=== PATIENT | female | born 1940 | race Caucasian/White ===

== ENCOUNTER → 2016-08-11 | Outpatient (CLI) | payer MEDICARE, OTHER ==
[~2016-08-11] MED LIST: CARVEDILOL12.5 MG PO; CLARITIN10 MG PO; LEVOTHYROXIN0.112 MG PO; OSCAL/D,OYSTER250 MG PO; TYLENOL500 MG PO; VITAMIN D400 IU PO
[2016-08-11 08:33] LABS: BASO % 0.5 % (0.0-1.0); EOS # 0.5 10*3/uL (0.0-0.4); EOS % 5.2 % (1.0-4.0); HEMATOCRIT 40.4 % (37.0-47.0); HEMOGLOBIN 13.2 g/dl (12.0-16.0); LYMPH # 2.2 10*3/uL (1.3-4.4); LYMPH % 25.5 % (27.0-41.0); MEAN CELL VOLUME 96.9 fl (81.0-99.0); MEAN CORPUSCULAR HGB 31.7 pg (27.0-31.0); MEAN CORPUSCULAR HGB CONC 32.7 g/dl (33.0-37.0); MEAN PLATELET VOLUME 10.5 fl (9.6-12.3); MONO # 0.7 10*3/uL (0.1-1.0); MONO % 7.7 % (3.0-9.0); NEUT # 5.2 10*3/uL (2.3-7.9); NEUT % 60.8 % (47.0-73.0); PLATELET COUNT AUTOMATED 174 10*3/uL (130-400); RED BLOOD COUNT 4.17 10*6/uL (4.10-5.10); RED CELL DISTRI WIDTH 13.5 % (0-14.5); WHITE BLOOD COUNT 8.6 10*3/uL (4.8-10.8)
[2016-08-11 09:09] LABS: ALBUMIN 3.6 gm/dl (3.1-4.5); BILIRUBIN, TOTAL 0.6 mg/dl (0.2-1.0); FREE T4 1.13 ng/dl (0.76-1.46); POTASSIUM 4.2 mmol/L (3.5-5.1); THYROID STIM HORMONE (HS) 2.21 uIU/ml (0.358-4.75); TOTAL PROTEIN 7.7 gm/dL (6.4-8.2)
[2016-08-11 10:55] LABS: FOLIC ACID 20.93 ng/mL (>5.38)
== END | disposition home or self-care (01) ==
LOC: LAB 07:57
PROVIDERS: Internal Medicine
DX: I10 Essential (primary) hypertension (principal); M16.0 Bilateral primary osteoarthritis of hip; R42 Dizziness and giddiness; E03.9 Hypothyroidism, unspecified; E78.5 Hyperlipidemia, unspecified; M54.5 Low back pain; M47.896 Other spondylosis, lumbar region; M25.551 Pain in right hip; M25.552 Pain in left hip

== ENCOUNTER → 2018-01-18 | Outpatient (CLI) | payer MEDICARE, OTHER | END | disposition home or self-care (01) | LOC: MRI 00:34 | DX: M47.896 Other spondylosis, lumbar region (principal); M48.061 Spinal stenosis, lumbar region without neurogenic claudication; M41.86 Other forms of scoliosis, lumbar region; M54.6 Pain in thoracic spine; Z91.81 History of falling ==

== ENCOUNTER → 2018-02-05 | Outpatient (CLI) | payer MEDICARE, OTHER | END | disposition home or self-care (01) | LOC: CT 01:21 | DX: I70.90 Unspecified atherosclerosis (principal); R19.09 Other intra-abdominal and pelvic swelling, mass and lump ==

== ENCOUNTER 2018-02-09 11:23 | Emergency (ER) | payer MEDICARE, OTHER ==
[~2018-02-09] VITALS: Ht 170.1 cm; Wt 56.7 kg
[2018-02-09 12:26] LABS: BASO % 0.4 % (0.0-1.0); EOS # 0.2 10*3/uL (0.0-0.4); EOS % 2.8 % (1.0-4.0); HEMATOCRIT 34.4 % (37.0-47.0); HEMOGLOBIN 11.4 g/dl (12.0-16.0); LYMPH # 1.8 10*3/uL (1.3-4.4); LYMPH % 22.8 % (27.0-41.0); MEAN CELL VOLUME 95.8 fl (81.0-99.0); MEAN CORPUSCULAR HGB 31.8 pg (27.0-31.0); MEAN CORPUSCULAR HGB CONC 33.1 g/dl (33.0-37.0); MEAN PLATELET VOLUME 9.5 fl (9.6-12.3); MONO # 0.6 10*3/uL (0.1-1.0); NEUT # 5.3 10*3/uL (2.3-7.9); NEUT % 66.9 % (47.0-73.0); PLATELET COUNT AUTOMATED 200 10*3/uL (130-400); RED BLOOD COUNT 3.59 10*6/uL (4.10-5.10); RED CELL DISTRI WIDTH 13.6 % (0-14.5); WHITE BLOOD COUNT 7.9 10*3/uL (4.8-10.8)
[2018-02-09 12:43] LABS: ALBUMIN 3.4 gm/dl (3.1-4.5); ALKALINE PHOSPHATASE 84 U/L (45-117); BUN 15 mg/dl (7-24); CHLORIDE 108 mmol/L (98-107); CREATININE 1.03 mg/dL (0.55-1.02); LIPASE 81 U/L (73-393); POTASSIUM 3.5 mmol/L (3.5-5.1); SGOT/AST 17 IU/L (3-35); SGPT/ALT 20 U/L (12-78); SODIUM 141 mmol/L (136-145); TOTAL PROTEIN 7.5 gm/dL (6.4-8.2)
[2018-02-09 12:50] VITALS: BP 127/62
== END 2018-02-09 14:24 | disposition home or self-care (01) ==
LOC: ED 11:23
PROVIDERS: Emergency Medicine
DX: J02.9 Acute pharyngitis, unspecified (principal); R13.10 Dysphagia, unspecified; R22.0 Localized swelling, mass and lump, head; Z88.6 Allergy status to analgesic agent; Z79.899 Other long term (current) drug therapy

== ENCOUNTER → 2019-03-18 | Outpatient (CLI) | payer MEDICARE, OTHER ==
[2019-03-18 13:00] LABS: CREATININE 1.12 mg/dL (0.55-1.02); FREE T4 1.19 ng/dl (0.76-1.46)
[2019-03-18 13:05] LABS: THYROID STIM HORMONE (HS) 4.87 uIU/ml (0.358-4.75)
[2019-03-18 14:04] LABS: FERRITIN 90.6 ng/mL (10.0-291.0)
== END | disposition home or self-care (01) ==
LOC: LAB 11:54
PROVIDERS: Internal Medicine
DX: M16.0 Bilateral primary osteoarthritis of hip (principal); G25.81 Restless legs syndrome; E03.9 Hypothyroidism, unspecified; E78.5 Hyperlipidemia, unspecified

== ENCOUNTER → 2019-04-27 | Outpatient (CLI) | payer MEDICARE, OTHER ==
[~2019-04-27] MED LIST changes: +GABAPENTIN400 MG PO; +LEVAQUIN750 M1 PO; +LEVOTHYROXINE50 MCG PO; +LISINOPRIL2.5 MG PO; +MYRBETRIQ25 M1 PO; +NICODERM CQ1 EAC2 T; +OMEPRAZOLE MAGN20 MG PO; +OYSTER SHELL 51 EACH PO; +PRAVASTATIN SOD20 MG PO; +PREDNISONE10 MG PO; +Percocet 325 MG1 TAB PO; +ROPINIROLE HYD0.5 MG PO; +VENT7GM INH; +XARE15TA PO
[2019-04-27 17:29] LABS: PTH INTACT 41.5 pg/mL (18.5-88.0); VITAMIN D, 25-HYDROXY 13.5 ng/mL (30-100)
== END | disposition home or self-care (01) ==
LOC: US 14:00 → LAB 14:05
PROVIDERS: Internal Medicine Nephrology
DX: M16.12 Unilateral primary osteoarthritis, left hip (principal); M25.551 Pain in right hip; R10.2 Pelvic and perineal pain; N18.3 Chronic kidney disease, stage 3 (moderate)

== ENCOUNTER 2019-05-19 13:10 | Inpatient (IN) | payer MEDICARE, OTHER ==
[~2019-05-19] VITALS: Ht 165.1 cm; Wt 54.0 kg
[~2019-05-19 13:10] MED LIST changes: -GABAPENTIN400 MG PO; -LEVAQUIN750 M1 PO; -LEVOTHYROXINE50 MCG PO; -LISINOPRIL2.5 MG PO; -MYRBETRIQ25 M1 PO; -NICODERM CQ1 EAC2 T; -OMEPRAZOLE MAGN20 MG PO; -OYSTER SHELL 51 EACH PO; -PRAVASTATIN SOD20 MG PO; -PREDNISONE10 MG PO; -Percocet 325 MG1 TAB PO; -ROPINIROLE HYD0.5 MG PO; -VENT7GM INH; -XARE15TA PO
[2019-05-19] MEDS ORDERED: VENT7GM INH (14:48)
[2019-05-19] MEDS ORDERED: OMEPRAZOLE MAGN20 MG PO (14:49)
[2019-05-19] MEDS ORDERED: Percocet 325 MG1 TAB PO (14:51)
[2019-05-19] MEDS ORDERED: PRAVASTATIN SOD20 MG PO (14:51)
[2019-05-19] MEDS ORDERED: GABAPENTIN400 MG PO (14:52)
[2019-05-19] MEDS ORDERED: LISINOPRIL2.5 MG PO (14:53)
[2019-05-19] MEDS ORDERED: LEVOTHYROXINE50 MCG PO (14:54)
[2019-05-19] MEDS ORDERED: ROPINIROLE HYD0.5 MG PO (14:57)
[2019-05-19] MEDS ORDERED: MYRBETRIQ25 M1 PO (15:01)
[2019-05-19] MEDS ORDERED: OYSTER SHELL 51 EACH PO (15:02)
[2019-05-19 15:45] LABS: BASO % 0.2 % (0.0-1.0); EOS # 0.1 10*3/uL (0.0-0.4); EOS % 0.7 % (1.0-4.0); HEMOGLOBIN 13.3 g/dl (12.0-16.0); LYMPH # 1.5 10*3/uL (1.3-4.4); MEAN CELL VOLUME 98.8 fl (81.0-99.0); MEAN CORPUSCULAR HGB CONC 32.4 g/dl (33.0-37.0); MEAN PLATELET VOLUME 9.6 fl (9.6-12.3); MONO % 7.9 % (3.0-9.0); NEUT # 10.1 10*3/uL (2.3-7.9); PLATELET COUNT AUTOMATED 197 10*3/uL (130-400); RED BLOOD COUNT 4.15 10*6/uL (4.10-5.10); RED CELL DISTRI WIDTH 13.5 % (0-14.5); WHITE BLOOD COUNT 12.8 10*3/uL (4.8-10.8)
[2019-05-19 16:00] VITALS: BP 125/62
[2019-05-19 16:01] LABS: ALBUMIN 3.9 gm/dl (3.1-4.5); ALKALINE PHOSPHATASE 107 U/L (45-117); BUN 16 mg/dl (7-24); CHLORIDE 100 mmol/L (98-107); CREATININE 1.07 mg/dL (0.55-1.02); POTASSIUM 3.9 mmol/L (3.5-5.1); SGOT/AST 25 IU/L (3-35); SGPT/ALT 27 U/L (12-78); SODIUM 134 mmol/L (136-145); TOTAL PROTEIN 8.7 gm/dL (6.4-8.2)
[2019-05-19 16:11] LABS: TROPONIN I < 0.015 ng/ml (<0.045)
[2019-05-19 20:00] VITALS: BP 126/60
--- NOTE | 2019-05-19 21:15 | NUR ---
PRN TYLENOL ADMINISTERED AT THIS TIME FOR TEMP OF 99.2. WILL MONITOR.
--- NOTE | 2019-05-19 21:15 | NUR ---
DR KEARNS NOTIFIED OF PTS O2 SAT 87. PT COUGHING CONSISTENTLY AND HAS A HARD TIME CATCHING HER BREATH INBETWEEN. PT STATES THAT SHE IS NOT ANY MORE SOB THAN NORMAL. HEAD OF THE BED WAS ELEVATED AND O2 WAS INCREASED TO 2 1/2. O2 89 AT THIS TIME. WILL CONTINUE TO MONITOR.
--- NOTE | 2019-05-19 23:41 | NUR ---
DR MORALES NOTIFIED OF PT O2 SAT 88 ON 3L NC. STATES TO CONTINUE TO MONITOR THE PT AT THIS TIME AND NOTIFY IF SHE FALLS BELOW 88. PT IN NO DISTRESS.
[2019-05-20] VITALS: BP 141/57
[2019-05-20 00:32] LABS: ABG BASE EXCESS 0.9 mmol/L (-2.0-2.0); ABG HCO3 24.6 mmol/l (22-26); ARTERIAL BLOOD GAS PCO2 38.2 mmHg (35-45); ARTERIAL BLOOD GAS PH 7.425 (7.35-7.45); ARTERIAL BLOOD GAS PO2 58.7 mmHg (80-90)
--- NOTE | 2019-05-20 03:39 | NUR ---
24 HOUR CHART CHECK COMPLETE.
[2019-05-20 06:49] LABS: BUN 19 mg/dl (7-24); CHLORIDE 102 mmol/L (98-107); CREATININE 1.02 mg/dL (0.55-1.02); PHOSPHOROUS 3.6 mg/dL (2.5-4.9); POTASSIUM 4.2 mmol/L (3.5-5.1); SODIUM 134 mmol/L (136-145)
[2019-05-20 07:34] LABS: BASO % 0.1 % (0.0-1.0); HEMATOCRIT 37.5 % (37.0-47.0); HEMOGLOBIN 12.2 g/dl (12.0-16.0); LYMPH % 8.6 % (27.0-41.0); MEAN CELL VOLUME 97.2 fl (81.0-99.0); MEAN CORPUSCULAR HGB 31.6 pg (27.0-31.0); MEAN CORPUSCULAR HGB CONC 32.5 g/dl (33.0-37.0); MEAN PLATELET VOLUME 10.4 fl (9.6-12.3); MONO # 0.1 10*3/uL (0.1-1.0); MONO % 0.9 % (3.0-9.0); NEUT % 89.7 % (47.0-73.0); PLATELET COUNT AUTOMATED 194 10*3/uL (130-400); RED BLOOD COUNT 3.86 10*6/uL (4.10-5.10); RED CELL DISTRI WIDTH 13.5 % (0-14.5); WHITE BLOOD COUNT 11.2 10*3/uL (4.8-10.8)
[2019-05-20 08:00] VITALS: BP 108/56
--- NOTE | 2019-05-20 09:11 | NUR ---
MESSAGE LEFT VIA VOICEMAIL TO NOTIFIY DR PRICE OF NEW CONSULT FOR COPD EXACERBATION WITH HYPOXEMIC RESPITORY FAILURE.
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
[2019-05-20 12:00] VITALS: BP 105/48
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
[2019-05-20 16:00] VITALS: BP 127/65
[2019-05-20 20:00] VITALS: BP 132/52
--- NOTE | 2019-05-20 20:00 | NUR ---
24 HOUR CHART CHECK COMPLETE.
[2019-05-21] VITALS: BP 153/69
[2019-05-21 06:50] LABS: HEMATOCRIT 38.3 % (37.0-47.0); HEMOGLOBIN 12.2 g/dl (12.0-16.0); MEAN CELL VOLUME 99.2 fl (81.0-99.0); MEAN CORPUSCULAR HGB 31.6 pg (27.0-31.0); MEAN CORPUSCULAR HGB CONC 31.9 g/dl (33.0-37.0); MEAN PLATELET VOLUME 9.9 fl (9.6-12.3); PLATELET COUNT AUTOMATED 210 10*3/uL (130-400); RED BLOOD COUNT 3.86 10*6/uL (4.10-5.10); RED CELL DISTRI WIDTH 13.7 % (0-14.5); WHITE BLOOD COUNT 14.1 10*3/uL (4.8-10.8)
[2019-05-21 07:11] LABS: BUN 16 mg/dl (7-24); CHLORIDE 112 mmol/L (98-107); CREATININE 0.99 mg/dL (0.55-1.02); POTASSIUM 4.1 mmol/L (3.5-5.1); SODIUM 143 mmol/L (136-145)
[2019-05-21 07:39] LABS: PLATELET SUFFICIENCY NORMAL (NORMAL); TOTAL CELLS COUNTED 100 #CELLS
[2019-05-21 08:00] VITALS: BP 134/65
--- NOTE | 2019-05-21 11:32 | NUR ---
DR PRICE ROUNDED AND SEEN PT.
[2019-05-21 12:00] VITALS: BP 109/72
[2019-05-21 16:00] VITALS: BP 141/65
--- NOTE | 2019-05-21 17:03 | NUR ---
RECIEVED MESSAGE FROM SR VICE PRESIDENT REGARDING POLICY ON TIME FRAME OF CXR PRIOR TO CTA, PER ADVERTISING PROJECT MANAGER.ORDER FOR REPEAT CXR RECIEVED. NOTIFIED RADIOLOGY.
[2019-05-21 20:00] VITALS: BP 150/63
--- NOTE | 2019-05-21 20:00 | NUR ---
24 HOUR CHART CHECK COMPLETE.
--- NOTE | 2019-05-21 23:00 | NUR ---
IV started right antecubital with #20 protective cath after 1 attempts. Site prepped with Chloroprep. Sterile dressing applied. Patient tolerated procedure well. RICK KOCH
[2019-05-22] VITALS: BP 160/63
--- NOTE | 2019-05-22 00:30 | NUR ---
SPOKE WITH DR YANNI FRAUSTO PTS CRITICAL CT SCAN RESULTS. STATES THAT THERE IS A PE IN THE RIGHT LOWER LOBE. CT RESULTS STATE THERE IS QUESTIONABLE FILLING DEFECT IN RIGHT LOWER LOBE. WILL CONTACT DR GALVAN REGARDING THESE RESULTS.
--- NOTE | 2019-05-22 01:08 | NUR ---
SPOKE WITH DR. GALVAN REGARDING PT CRITICAL CT SCAN FOR RT LOWER LOBE PE. T.O. TAKEN TO START HEPARIN DRIP PER PROTOCOL. DR. GALVAN STATED TO NOTIFY DR PRICE IN THE MORNING. WILL CONTINUE TO MONITOR.
[2019-05-22 01:11] LABS: HEMATOCRIT 37.6 % (37.0-47.0); HEMOGLOBIN 12.2 g/dl (12.0-16.0); MEAN CELL VOLUME 99.5 fl (81.0-99.0); MEAN CORPUSCULAR HGB 32.3 pg (27.0-31.0); MEAN CORPUSCULAR HGB CONC 32.4 g/dl (33.0-37.0); MEAN PLATELET VOLUME 9.8 fl (9.6-12.3); PLATELET COUNT AUTOMATED 230 10*3/uL (130-400); RED BLOOD COUNT 3.78 10*6/uL (4.10-5.10); RED CELL DISTRI WIDTH 13.8 % (0-14.5); WHITE BLOOD COUNT 15.8 10*3/uL (4.8-10.8)
[2019-05-22 01:22] LABS: ACT PARTIAL THROMBO TIME 25.1 SECONDS (20.0-32.1); INTERNATIONAL NORM RATIO 0.9 (2.0-3.5)
--- NOTE | 2019-05-22 01:30 | NUR ---
APTT 25.1. PER POLICY, NO BOLUS IS NECESSARY. HEPARING INFUSING AT 18U/KG/HR. 9.716 ML/HR. WILL MONITOR.
[2019-05-22 01:32] LABS: ATYPICAL LYMPHS 1 % (0-0); PLATELET SUFFICIENCY NORMAL (NORMAL); TOTAL CELLS COUNTED 100 #CELLS
--- NOTE | 2019-05-22 01:50 | NUR ---
APTT ORDERED FOR 05/22 0730, CBC ORDERED FOR 05/25 0530 PER POLICY.
--- NOTE | 2019-05-22 06:32 | NUR ---
LEFT A MESSAGE FOR DR PRICE ON HIS ANSWERING MACHINE REGARDING CT RESULTS AND START OF HEPARIN DRIP.
--- NOTE | 2019-05-22 06:39 | NUR ---
ATTEMPTED TO CALL DR PRICE'S HOUSE PHONE TO NOTIFY OF CT RESULTS AND START OF HEPARIN DRIP. NO ANSWER AT THIS TIME.
[2019-05-22 07:40] LABS: HEMATOCRIT 37.4 % (37.0-47.0); MEAN CORPUSCULAR HGB 32.1 pg (27.0-31.0); MEAN CORPUSCULAR HGB CONC 32.1 g/dl (33.0-37.0); MEAN PLATELET VOLUME 9.9 fl (9.6-12.3); PLATELET COUNT AUTOMATED 230 10*3/uL (130-400); RED BLOOD COUNT 3.74 10*6/uL (4.10-5.10); RED CELL DISTRI WIDTH 13.8 % (0-14.5); WHITE BLOOD COUNT 14.4 10*3/uL (4.8-10.8)
[2019-05-22 07:51] LABS: BUN 19 mg/dl (7-24); CHLORIDE 107 mmol/L (98-107); CREATININE 0.85 mg/dL (0.55-1.02); POTASSIUM 3.8 mmol/L (3.5-5.1); SODIUM 142 mmol/L (136-145)
[2019-05-22 08:00] VITALS: BP 133/86; BP 135/57
[2019-05-22 08:12] LABS: PLATELET SUFFICIENCY NORMAL (NORMAL); TOTAL CELLS COUNTED 100 #CELLS
--- NOTE | 2019-05-22 10:35 | NUR ---
SPOKE WITH DR. GALVAN TO QUESTION LOVENOX INJECTION WHILE PT ON HEPARIN GTT. TELEPHONE ORDER OF DC HEPARIN, LOVENIX AND START ELIQUIS 10MG PO BID FO R1 WEEK THEN 5 MG ELIQUIS BID THEREAFTER.
--- NOTE | 2019-05-22 10:54 | NUR ---
DR GALVAN ALSO ORDERRED CONSULT FOR INSURANCE APPROVAL ON [employer]. SAID HE MAY CHANGE IT TO [employer] IF INSURANCE DOES NOT APPROVE.
[2019-05-22 12:00] VITALS: BP 143/63
[2019-05-22 16:00] VITALS: BP 129/56
[2019-05-22 20:00] VITALS: BP 152/69
--- NOTE | 2019-05-22 22:51 | NUR ---
PT CALLED OUT & STATES SHE "RIPPED SKIN OFF BACK." RN IN ROOM TO ASSESS SITUATION. PT STATES SHE WAS GETTING OUT OF BED AND HIT BACK ON SIDE RAIL OF BED. STATES THIS HAPPENS A LOT, BUT THINKS IT IS OPEN. ABOUT 1 CM X 1 CM AREA OPEN AT THIS TIME. PT REFUSING PHOTOS/EXACT MEASURING. HYDROGEL AND OPTIFOAM APPLIED TO AREA. WILL NOTIFY DOCTOR & OBTAIN WOUND CARE ORDERS.
--- NOTE | 2019-05-22 22:51 | NUR ---
PT CALLED OUT & STATES SHE "RIPPED SKIN OFF BACK." RN IN TO ROOM TO ASSESS SITUATION. PT STATES SHE WAS GETTING OUT OF BED & NOTICED "SKIN" CAME OFF. PT STATES SHE SCRAPED BACK AT HOME ON A DOOR FACING & THAT THIS HAPPENS A LOT. STATES IT WAS HEALED, BUT SHE MUST'VE "SCRATCHED OFF THE SKIN" GETTING IN AND OUT OF BED. AREA IS OPEN. PT REFUSING PHOTOS/EXACT MEASUREMENTS BUT RN ESTIMATES OPEN AREA TO BE ABOUT 1CM X 1CM. HYDROGEL AND OPTIFOAM APPLIED TO AREA. WILL NOTIFY DOCTOR AND OBTAIN WOUND ORDERS.
[2019-05-23] VITALS: BP 159/71
--- NOTE | 2019-05-23 03:46 | NUR ---
PT ASLEEP IN BED. AEROSOL FACEMASK IN USE AT 40%. NO S/S OF DISTRESS NOTED. WILL MONITOR. CALL LIGHT IN REACH.
[2019-05-23 06:46] LABS: HEMOGLOBIN 12.7 g/dl (12.0-16.0); MEAN CELL VOLUME 99.5 fl (81.0-99.0); MEAN CORPUSCULAR HGB 31.6 pg (27.0-31.0); MEAN CORPUSCULAR HGB CONC 31.8 g/dl (33.0-37.0); MEAN PLATELET VOLUME 9.7 fl (9.6-12.3); PLATELET COUNT AUTOMATED 242 10*3/uL (130-400); RED BLOOD COUNT 4.02 10*6/uL (4.10-5.10); RED CELL DISTRI WIDTH 13.8 % (0-14.5); WHITE BLOOD COUNT 12.6 10*3/uL (4.8-10.8)
--- NOTE | 2019-05-23 06:46 | NUR ---
TESSALON PERLES ADMINISTERED PER PRN ORDER FOR DRY, HACKING COUGH. PT USING AEROSOL MASK AT THIS TIME. PT HAD EPISODE OF URINARY INCONTINENCE. PT CLEANED UP. NEW BED LINENS/GOWN PROVIDED. WILL MONITOR.
[2019-05-23 07:19] LABS: BUN 22 mg/dl (7-24); CHLORIDE 108 mmol/L (98-107); POTASSIUM 3.8 mmol/L (3.5-5.1); SODIUM 143 mmol/L (136-145)
[2019-05-23 08:00] VITALS: BP 170/52
[2019-05-23 08:25] LABS: PLATELET SUFFICIENCY NORMAL (NORMAL); TOTAL CELLS COUNTED 100 #CELLS
--- NOTE | 2019-05-23 11:08 | NUR ---
Client Service Supervisor in to see patient. No new needs or request at this time. She denies any home needs. She is thinking she will return home and not go to [place] with her daughter. She states she an appt with Dr. Pickard on the 30 of May and a dental appt to get new dentures on the 31 of May. Discussed the cost of Eliquis and Xarelto. Patient prefers Xarelto for the cost. Spoke to Dr. Pickard regarding patient requesting to be on Xarelto and have it filled here at the hospital pharmacy for $4. Dr. Pickard states to change it to Xarelto 15 mg BID for 21 days then 20 mg daily after the 21 days. When medically stable she will be discharged to home. Her son will transport on discharge.
--- NOTE | 2019-05-23 11:08 | NUR ---
AARONMESSI [id number] Please refer to the physician's history and physical for past medical history, comorbid conditions, and allergies. Diagnosis: COPD EXACERBATION SINUSES FAILED OUTPT TREATMENT Jaxon Score: 19,LOW OR NO RISK WOUND DESCRIPTIONS: Wound Number: 1 Location of the wound: middle of upper back Type of wound: stage 3 Thickness: Full Size: 0.5cm x 0.6cm x <0.1cm Tunneling: none Undermining: none Sinus Tract: none Presence of Exudate: Serosanguineous Amount: Light Color: Yellow, red Odor: None Periwound Skin Appearance: Normal Wound edges: approximated Pain (associated with wound): none at time of assessment How does patient state this happened? pt stated she bumped it at home on the door frame and has had it since she came in Surface the patient is resting on: Position Pro SKIN PREVENTION RECOMMENDATION: 1. Pressure redistribution support surface as appropriate 2. Elevate heels 3. Remove boots/TEDS every shift and reapply 4. Head of bed 30 degrees as tolerated 5. Assess nutrition and hydration 6. Manage moisture 7. Avoid the use of containment devices while in bed 8. Use absorptive products on surfaces limit layers of linens on bed 9. Turn and reposition every 1-2 hours in bed and every 1 hour in chair as tolerated 10. Weight shifts every 15 minutes while up in chair 11. Offloading with pillows or device to keep heels elevated off bed 12. Monitor skin at least every shift 13. Inspect under medical devices twice a day WOUND TREATMENT RECOMMENDATIONS: Full thickness guidelines: Cleanse middle of back with nss and apply sureprep around the wound therahoney to wound bed and cover with optifoam gentle.
[2019-05-23 12:00] VITALS: BP 159/76
[2019-05-23 16:00] VITALS: BP 118/89
[2019-05-23 20:00] VITALS: BP 113/63
[2019-05-24] VITALS: BP 155/70
--- NOTE | 2019-05-24 05:14 | NUR ---
PT C/O SOME MILD INDIGESTION PAIN THAT SPREAD TO L SIDE OF CHEST. PT STATES IT DID NOT FEEL LIKE CHEST PAIN AND STATES THERE IS NO NEED TO CALL DR. STATES SHE WILL NOTIFY RN IF PAIN OCCURS AGAIN. TESSALON PERLES ADMINISTERED PER PRN ORDER FOR C/O COUGH. WILL MONITOR EFFECTIVENESS.
[2019-05-24 06:46] LABS: HEMATOCRIT 43.5 % (37.0-47.0); HEMOGLOBIN 13.7 g/dl (12.0-16.0); MEAN CORPUSCULAR HGB 31.5 pg (27.0-31.0); MEAN CORPUSCULAR HGB CONC 31.5 g/dl (33.0-37.0); MEAN PLATELET VOLUME 9.8 fl (9.6-12.3); PLATELET COUNT AUTOMATED 301 10*3/uL (130-400); RED BLOOD COUNT 4.35 10*6/uL (4.10-5.10); RED CELL DISTRI WIDTH 13.8 % (0-14.5); WHITE BLOOD COUNT 15.3 10*3/uL (4.8-10.8)
[2019-05-24 07:23] LABS: CHLORIDE 103 mmol/L (98-107); POTASSIUM 3.7 mmol/L (3.5-5.1); SODIUM 142 mmol/L (136-145)
[2019-05-24 07:29] LABS: BUN 23 mg/dl (7-24); CREATININE 0.85 mg/dL (0.55-1.02)
[2019-05-24 08:00] VITALS: BP 172/90
[2019-05-24 08:12] LABS: PLATELET SUFFICIENCY NORMAL (NORMAL); TARGET CELLS FEW; TOTAL CELLS COUNTED 100 #CELLS
--- NOTE | 2019-05-24 08:22 | NUR ---
ORAL BP MEDS GIVEN EARLY DUE TO ELEVATED BP OF 172/90.
--- NOTE | 2019-05-24 08:38 | NUR ---
Dr. Pressley notified of wound care recommendations.
--- NOTE | 2019-05-24 10:30 | NUR ---
Medical Office Manager in to see patient. Discussed home health care services and she is agreeable. When provided with a list of agencies she chose [facility]. When medically stable she will be discharged to home with [facility].
[2019-05-24 12:00] VITALS: BP 117/55
--- NOTE | 2019-05-24 13:18 | NUR ---
PODIATRY RESIDENT IN TO SEE PT AND PERFORM TOE NAIL CARE.
[2019-05-24 16:00] VITALS: BP 117/57
--- NOTE | 2019-05-24 17:00 | NUR ---
PRE WALK. PT HAS BP 117/55, POST 149/75 HEART RATE 103/POST 100 89%ROOM AIR. FINISHED TO HER ROOM WITH SATS OF 92%. PT DID NOT GO BELOW 88%, CAME UP TO 96% AT ONE POINT. TOLERATED WALK WELL
[2019-05-24 20:00] VITALS: BP 127/61
--- NOTE | 2019-05-24 21:05 | NUR ---
TESSALON PERLES ADMINISTERED PER PRN ORDER FOR COUGH. WILL MONITOR EFFECTIVENESS. PT DENIES ANY OTHER NEEDS AT PRESENT TIME. SON AT BEDSIDE. WILL MONITOR. CALL LIGHT IN REACH.
[2019-05-24 22:00] VITALS: BP 115/65
[2019-05-25] VITALS: BP 143/70
--- NOTE | 2019-05-25 00:43 | NUR ---
[facility] CEPACHOL VERIF[facility]. STATES THEY WILL VERIFY ROSALBA.
--- NOTE | 2019-05-25 01:17 | NUR ---
PT NOW ASLEEP IN BED. RESPIRATIONS EASY. NO S/S OF DISTRESS NOTED. CEPACHOL LOZENGE NOT NEEDED AT THIS TIME. WILL MONITOR. CALL LIGHT LEFT IN REACH.
--- NOTE | 2019-05-25 04:11 | NUR ---
PT ASLEEP IN BED. RESPIRATIONS EASY. NO S/S OF DISTRESS NOTED. WILL MONITOR. CALL LIGHT IN REACH.
--- NOTE | 2019-05-25 04:34 | NUR ---
Recommend follow up for wound care in outpatient setting patient refused at this time.
[2019-05-25 06:22] LABS: HEMATOCRIT 36.9 % (37.0-47.0); HEMOGLOBIN 11.8 g/dl (12.0-16.0); MEAN CELL VOLUME 98.7 fl (81.0-99.0); MEAN CORPUSCULAR HGB 31.6 pg (27.0-31.0); MEAN PLATELET VOLUME 9.5 fl (9.6-12.3); NUCLEATED RED BLOOD CELL 0.1 % (0.0-0.0); PLATELET COUNT AUTOMATED 229 10*3/uL (130-400); RED BLOOD COUNT 3.74 10*6/uL (4.10-5.10); RED CELL DISTRI WIDTH 13.9 % (0-14.5); WHITE BLOOD COUNT 15.2 10*3/uL (4.8-10.8)
[2019-05-25 07:47] LABS: ATYPICAL LYMPHS 2 % (0-0); TOTAL CELLS COUNTED 100 #CELLS
[2019-05-25 07:48] LABS: PLATELET SUFFICIENCY NORMAL (NORMAL)
[2019-05-25 08:00] VITALS: BP 175/86
--- NOTE | 2019-05-25 09:08 | NUR ---
Faxed home health care order to [facility]
[2019-05-25 12:00] VITALS: BP 120/62
[2019-05-25] MEDS ORDERED: PREDNISONE10 MG PO (12:29)
[2019-05-25] MEDS ORDERED: LEVAQUIN750 M1 PO (12:29)
[2019-05-25] MEDS ORDERED: XARE15TA PO (12:29)
--- NOTE | 2019-05-25 12:41 | NUR ---
PT MEDICATED WITH NORCO PO PER PRN ORDER FOR C/O BILATERAL HIP PAIN. RATES PAIN 02/26. WILL MONITOR EFFECTIVENESS.
--- NOTE | 2019-05-25 13:45 | NUR ---
PT REFUSED DISCHARGE PHOTO AT THIS TIME.
[2019-05-25] MEDS ORDERED: NICODERM CQ1 EAC2 T (13:52)
--- NOTE | 2019-05-25 13:52 | NUR ---
Discharge instructions reviewed with patient/family. Patient receptive and verbalizes understanding. Follow-up care arranged. Written instructions given to patient/family. HIGINIO WHITNEY.
--- NOTE | 2019-05-27 14:42 | NUR ---
Received call from Gaye at [facility]. She stated patient has gone to [place] with her daughter, therefore [facility] will not be her HH provider patient will not have services through [facility].
== END 2019-05-25 13:52 | disposition home health service (06) | DRG 175 ==
LOC: 5E 13:10
PROVIDERS: Internal Medicine; Internal Medicine Nephrology; Student in an Organized Health Care Education/Training Program; ADMIT Internal Medicine
DX: I26.99 Other pulmonary embolism without acute cor pulmonale (principal); J15.9 Unspecified bacterial pneumonia; J96.01 Acute respiratory failure with hypoxia; J44.1 Chronic obstructive pulmonary disease with (acute) exacerbation; E87.1 Hypo-osmolality and hyponatremia; G89.29 Other chronic pain; M54.9 Dorsalgia, unspecified; J44.9 Chronic obstructive pulmonary disease, unspecified; I10 Essential (primary) hypertension; K21.9 Gastro-esophageal reflux disease without esophagitis; E78.5 Hyperlipidemia, unspecified; R73.9 Hyperglycemia, unspecified; F17.210 Nicotine dependence, cigarettes, uncomplicated; R04.0 Epistaxis; E89.0 Postprocedural hypothyroidism; G25.81 Restless legs syndrome; Z80.8 Family history of malignant neoplasm of other organs or systems; Z80.0 Family history of malignant neoplasm of digestive organs; Z88.6 Allergy status to analgesic agent; Z79.899 Other long term (current) drug therapy; Z71.6 Tobacco abuse counseling; Z99.81 Dependence on supplemental oxygen